=== PATIENT | female | born 1930 | race Hispanic/Latino ===

== ENCOUNTER 2019-12-25 05:51 | Day surgery (SDC) | payer OTHER ==
[2019-12-21 09:18] LABS: BASOPHILS % (AUTO) 0.7 % (0.0-5.0); EOSINOPHILS % (AUTO) 3.7 % (0.0-8.0); HEMATOCRIT 35.6 % (36-48); LYMPHOCYTES % (AUTO) 32.8 % (21.0-51.0); MEAN CORPUSCULAR HEMOGLOBIN 30.6 pg (27.0-33.0); MEAN CORPUSCULAR HGB CONC 32.9 g/dL (32.0-36.0); MEAN CORPUSCULAR VOLUME 93.2 fL (79-99); MONOCYTES % (AUTO) 10.6 % (3.0-13.0); NEUTROPHILS % (AUTO) 51.8 % (40.0-77.0); PLATELET COUNT (AUTO) 245 K/uL (130-400); RED BLOOD CELL COUNT(AUTO) 3.82 MIL/uL (4.00-5.50); RED CELL DISTRIBUTION WIDTH 15.5 % (11.0-15.5); WHITE BLOOD COUNT (AUTO) 6.8 K/uL (4.8-10.8)
[2019-12-21 09:32] LABS: INR 0.99 (0.85-1.15); PROTHROMBIN TIME 10.7 SEC (9.6-11.6)
[2019-12-21 10:09] LABS: CREATININE 1.5 mg/dL (0.5-1.5); POTASSIUM 3.5 mmol/L (3.5-5.1)
--- NOTE | 2019-12-24 11:12 | NUR ---
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
[~2019-12-25] VITALS: Ht 147.3 cm; Wt 72.6 kg
[2019-12-25] VITALS (12 sets, daily range): BP systolic 126–156; BP diastolic 54–84
[~2019-12-25 05:51] MED LIST: APIX2.5T PO; BUME1TAB6 PO; CEFAZOLIN SODIUM 1 GM VIAL IVP SCH; DORZ10DR19 OP; HYDR-4060 PO; IPRA3AMP24 IH; LATA2.5D14 OP; MULT-1192 PO; MV-M1TAB20 PO; OXYB5TAB15 PO; PROP1DRO4 OP; VIT-12 PO
[2019-12-25] MEDS ORDERED: SODIUM CHLORIDE 0.9% 1000ML 1,000 ML IV ONE (06:59)
[2019-12-25] MEDS ORDERED: BUPIVACAINE/PF 0.25% 30ML VIAL IJ ONE (07:17)
[2019-12-25] MEDS ORDERED: LIDOCAINE HCL 1% MDV 50ML VIAL ONE (07:17)
[2019-12-25] MEDS ORDERED: CEFAZOLIN SODIUM 1 GM VIAL ONE (07:17)
[2019-12-25] MEDS ORDERED: MEPERIDINE-PF 25 MG/ML SYG ONE ×2 (07:41→08:01)
[2019-12-25] MEDS ORDERED: MIDAZOLAM HCL 1 MG/ML 2ML VIAL ONE ×2 (07:41→08:02)
[2019-12-25] MEDS ORDERED: OCTYL 2-CYANOACRYLATE 1 EACH TP ONE (08:38)
[2019-12-25] MEDS ORDERED: ACETAMINOPHEN-CODEINE 300/30MG TAB PO PRN ×2 (09:00)
--- NOTE | 2019-12-25 09:15 | NUR ---
PT RECEIVED FROM [facility] FURNACE NURSE SOTO MARCUS. PRESSURE DRESSING IN PLACE. VISIBLE SKIN AROUND DRESSING SOFT/ NO HEMATOMA NOTED. ICE PACK APPLIED TO TOP OF SITE. WILL CONTINUE TO MONITOR SITE.
--- NOTE | 2019-12-25 13:10 | NUR ---
REPORT RECEIVED REPORT FROM AMRIT MONSON. PT LYING IN BED. SITE TO LEFT UPPER CHEST SOFT TO TOUCH WITH PRESSURE DRSG IN PLACE. AT BEDSIDE.
--- NOTE | 2019-12-25 14:30 | NUR ---
SITE CHECK SITE TO LEFT UPPER CHEST. SOFT TO TOUCH. NO BLEEDING, OOZING NOTED. PRESSURE DRSG IN PLACE.
[2019-12-25] MEDS ORDERED: CEFAZOLIN SODIUM 1 GM VIAL IVP SCH (15:00)
== END 2019-12-25 15:25 | disposition home or self-care (01) ==
LOC: DAH 05:51
PROVIDERS: ATTEND Internal Medicine Cardiovascular Disease
DX: Z45.010 Encounter for checking and testing of cardiac pacemaker pulse generator [battery] (principal); I49.5 Sick sinus syndrome; I48.19 Other persistent atrial fibrillation; I12.9 Hypertensive chronic kidney disease with stage 1 through stage 4 chronic kidney disease, or unspecified chronic kidney disease; N18.9 Chronic kidney disease, unspecified; G47.33 Obstructive sleep apnea (adult) (pediatric); Z86.73 Personal history of transient ischemic attack (TIA), and cerebral infarction without residual deficits; Z90.710 Acquired absence of both cervix and uterus; Z90.79 Acquired absence of other genital organ(s); Z98.890 Other specified postprocedural states; Z79.899 Other long term (current) drug therapy; Z79.01 Long term (current) use of anticoagulants
CPT/HCPCS: 33228; 36415; 80048; 85025; 85610; 85730; 93005; A4215; A4216; A4221; A4222; A4223 ×3; A4606; A4663; C1785; J0690 ×2; J2175 ×2; J2250 ×2; J3490 ×2; J7030; 99156; 99157

== ENCOUNTER → 2020-10-03 | Outpatient (CLI) | payer OTHER ==
[~2020-10-03] MED LIST changes: -CEFAZOLIN SODIUM 1 GM VIAL IVP SCH
== END | disposition home or self-care (01) ==
LOC: RAH 10:23
PROVIDERS: ATTEND Family Medicine
DX: R10.9 Unspecified abdominal pain (principal); R11.0 Nausea; R11.2 Nausea with vomiting, unspecified
CPT/HCPCS: 78264; A9541

== ENCOUNTER → 2022-04-16 | Outpatient (CLI) | payer OTHER | END | disposition home or self-care (01) | LOC: RAH 09:42 | PROVIDERS: ATTEND Family Medicine | DX: R60.0 Localized edema (principal) | CPT/HCPCS: 93971 ==